=== PATIENT | male | born 1975 | race Caucasian/White ===

== ENCOUNTER 2019-03-21 10:40 | Day surgery (SDC) | payer OTHER ==
[2019-03-09 10:22] VITALS: BMI 29.5
[2019-03-21] MEDS ORDERED: MIDAZOLAM HCL 2 MG/2 ML SINGLE DOSE VIAL ONE (11:56)
[2019-03-21] MEDS ORDERED: PROPOFOL 20 ML ONE (11:56)
[2019-03-21] MEDS ORDERED: BUPIVACAINE HCL 0.25% 125 MG/50 ML VIAL ONE (12:47)
[2019-03-21] MEDS ORDERED: BUPIVACAINE HCL/PF 0.25% (2.5MG/ML) 10 ML VIAL IJ ONE (13:07)
[2019-03-21] MEDS ORDERED: PROMETHAZINE HCL 25 MG/1 ML VIAL IVPUSH PRN (13:29)
[2019-03-21] MEDS ORDERED: oxyCODONE HCL 5 MG TABLET PO PRN ×2 (13:29)
[2019-03-21] MEDS ORDERED: ONDANSETRON 4 MG/2 ML VIAL IVPUSH PRN (13:29)
[2019-03-21] MEDS ORDERED: ACETAMINOPHEN 325 MG TABLET (FP) PO ONE (14:01)
[2019-03-21 14:28] VITALS: TEMP 98.1
[2019-03-21 15:09] VITALS: BP 134/69; PULSE 77
--- NOTE | 2019-03-22 06:47 | OP ---
DATE OF OPERATION: 03/21/2019 PREOPERATIVE DIAGNOSES: 1. Left carpal tunnel syndrome. 2. Left cubital tunnel syndrome. POSTOPERATIVE DIAGNOSES: 1. Left carpal tunnel syndrome. 2. Left cubital tunnel syndrome. OPERATIVE PROCEDURE: 1. Left cubital tunnel release, i.e., ulnar nerve release at elbow. 2. Left carpal tunnel release. SURGEON: Geraldine Phillips MD SPACE CONTROLLER: ALANA Pendleton ANESTHESIA: General. COMPLICATIONS: None. ESTIMATED BLOOD LOSS: Minimal. INDICATION FOR PROCEDURE: The patient presented with the above findings, indicated for operative treatment. Risks, benefits, and alternatives were discussed with the patient at length. Proper informed consent was obtained. DESCRIPTION OF PROCEDURE: After proper identification of the patient and correct operative site, patient was brought to the operating room and placed supine on the operating room table, all bony prominences well padded. General anesthesia was provided by the anesthesiologist and adequate for the procedure. Left upper extremity was prepped and draped in the usual sterile fashion. Well padded tourniquet was placed over the sterile prep. Esmarch bandage to exsanguinate the left upper extremity. Tourniquet was inflated to 250 mmHg. Longitudinal incision made in the proximal aspect of the palm. Incision was taken sharply through the skin, with blunt and sharp dissection to subcutaneous tissue. Palmar fascia was identified and divided longitudinally. Transcarpal ligament was divided longitudinally along with the distal portion of the antebrachial fascia under direct visualization with loupe magnification. This provided complete release of the median nerve at the wrist. Wound was repaired with a 5-0 fast-absorbing plain gut suture. A 2nd incision was made on the posteromedial aspect of the elbow. Incision was taken sharply through the skin and blunt and sharp dissection through the subcutaneous tissue. Ulnar nerve was found proximally and traced from a proximal to distal direction, unroofing it throughout the course. Compression was found underneath Parker ligament, which was completely released. Release was also performed along the entire course including the edge of the intermuscular septum, all the way into the 2 heads of the flexor carpi ulnaris muscle belly. Once release was complete, the nerve was free. There was no subluxation. There was no soft compression. No spurs were found in the bone. Wound was irrigated and repaired with 4-0 Vicryl and 4-0 Monocryl sutures. Steri-Strips and sterile dressings were placed. Sterile dressings were applied to both incisions. Dalton Schilling, the assistant women's soccer coach, was integral throughout the procedure. Procedure could not have been performed without a skilled operative assistant women's soccer coach. The patient was reversed from anesthesia and brought to the recovery room in stable condition. He tolerated the procedure well. GERALDINE PHILLIPS M.D. [id number]
== END 2019-03-21 15:10 | disposition home or self-care (01) ==
LOC: FASU 10:40
PROVIDERS: ATTEND Orthopaedic Surgery Hand Surgery
PROC: 01N40ZZ Release Ulnar Nerve, Open Approach (ICD-10-PCS; 2019-03-21)
PROC: 01N50ZZ Release Median Nerve, Open Approach (ICD-10-PCS; principal; 2019-03-21 12:32)
DX: G56.02 Carpal tunnel syndrome, left upper limb (principal); G56.22 Lesion of ulnar nerve, left upper limb
CPT/HCPCS: 94760